=== PATIENT | male | born 1960 | race Caucasian/White ===

== ENCOUNTER 2022-12-21 05:50 | Emergency (ER) | payer SELFPAY ==
[~2022-12-21] VITALS: Ht 177.8 cm; Wt 86.2 kg
[2022-12-21 06:05] VITALS: BP 138/85; PULSE 79; RESP 20; TEMP 98; O2SAT 97
--- NOTE | 2022-12-21 06:06 | NUR ---
pt went to bed 2
[2022-12-21] MEDS ORDERED: DICL100G5 TP (06:45)
[2022-12-21] MEDS ORDERED: IBUP-2213 PO (06:45)
[2022-12-21] MEDS ORDERED: CEPH-588 PO (06:45)
--- NOTE | 2022-12-21 06:55 | NUR ---
Dr. Etienne examining patient.
--- NOTE | 2022-12-21 06:56 | NUR ---
L KNEE IMMOBILIZER PLACED ON PT. MD BECKFORD AT THE . REFERRED TO [facility]. ENCOURAGED PT TO CALL TOMORROW OR TO WALK-IN.
--- NOTE | 2022-12-21 06:59 | NUR ---
APPLIED L KNEE IMMOBILIZER
[2022-12-21 07:06] VITALS: BP 140/78; PULSE 81; RESP 18; TEMP 98.4; O2SAT 97
--- NOTE | 2022-12-21 07:06 | NUR ---
Patient discharged with v/s stable. Written and verbal after care instructions given and explained. Ortho referrals provided. Copy of DUPS given. Patient alert, oriented and verbalized understanding of instructions. Ambulatory with crutches and knee immobilizer with steady gait. All questions addressed prior to discharge. ID band removed. Patient advised to follow up with PMD and ortho. Rx of Motrin, Diclofenac Sodium, and Keflex given. Patient educated on indication of medication including possible reaction and side effects. Opportunity to ask questions provided and answered.
== END 2022-12-21 07:06 | disposition home or self-care (01) ==
LOC: MED 05:50
DX: S80.02XA Contusion of left knee, initial encounter (principal); S60.222A Contusion of left hand, initial encounter; M25.462 Effusion, left knee; W20.8XXA Other cause of strike by thrown, projected or falling object, initial encounter; Y93.89 Activity, other specified; Y92.89 Other specified places as the place of occurrence of the external cause; Y99.8 Other external cause status
CPT/HCPCS: 29505; 73080; 73562; 99284